=== PATIENT | female | born 1985 | race Caucasian/White ===

== ENCOUNTER 2017-12-07 06:01 | Inpatient (IN) | payer MEDICAID, OTHER ==
[2017-12-07] VITALS (10 sets, daily range): BP systolic 113–146; BP diastolic 59–81; PULSE 71–93; RESP 16–18; TEMP 97.3–98.1; O2SAT 97
[~2017-12-07] VITALS: Ht 165.1 cm; Wt 74.0 kg
[~2017-12-07 06:01] MED LIST: CEPH-460 PO; PREN1PAK9; TUMS500C CHEW
[2017-12-07] MEDS ORDERED: LACTATED RINGER'S 1000 ML INJ 1,000 ML IV SCH (06:40)
[2017-12-07] MEDS ORDERED: LACTATED RINGER'S 1000 ML INJ 1,000 ML IV PRN (06:40)
[2017-12-07] MEDS ORDERED: SODIUM CHLORID 0.9% 500 ML INJ 500 ML IV PRN (06:45)
[2017-12-07] MEDS ORDERED: MINERAL OIL 10 ML VIAL TOPICAL PRN (06:45)
[2017-12-07] MEDS ORDERED: OXYTOCIN 30 UNITS-500ML PREMIX 500 ML IV ONE (06:45)
[2017-12-07] MEDS ORDERED: CITRIC ACID-SODIUM CITRATE LIQ 30 ML UDC PO SCH (06:45)
[2017-12-07] MEDS ORDERED: LIDOCAINE HCL 1% 50 ML VIAL INFIL PRN (06:45)
[2017-12-07] MEDS ORDERED: LIDOCAINE HCL 1% 50 ML VIAL I-DERMAL PRN (06:45)
--- NOTE | 2017-12-07 06:47 | HHI.HP ---
HPI Chief Complaint Contractions Date Seen: Dec 07, 2017 Time Seen: 06:40 Travel History International Travel<30 Days: No Contact w/Intl Traveler<30Days: No Known Affected Area: No History of Present Illness HPI Patient is 32-year-old white female at 38 weeks [facility] and presents in labor. Cervix is 7 cm on admission. heart tones are reactive and contractions noted Weeks Gestation: 38 Para: 1 : 2 History Obstetric History Obstetric History One vaginal delivery Social History Alcohol Use: No Tobacco Use: No Substance Abuse: No Allergies-Medications (Allergen,Severity, Reaction): Coded Allergies: No Known Allergies (Unverified Adverse Reaction, Unknown, 11/18/17) Home Meds Active Scripts Cephalexin (Keflex) 500 Mg Cap, 500 MG PO BID for Infection, #14 CAP 0 Refills Prov:Misti Sanchez 11/12/17 Reported Medications Calcium Carbonate (Antacid) (Tums) 500 Mg Chew, 500 MG CHEW Y for HEARTBURN, TAB 0 Refills 10/28/17 Mv & Min W/Fe Prot Alvarez ( + Complete Multi 18-0.8 & 290 mg) 18 Mg Iron-800 Mcg-290 Mg-225 Mg Latrell 10/11/17 Review of Systems General / Constitutional: No: Fever, Weight Gain, Chills, Other Eyes: No: Diploplia, Blurred Vision, Visual changes, Pain, Photophobia HENT: No: Headaches, Vertigo, Lightheadedness Cardiovascular: No: Irregular Rhythm, Chest Pain or Discomfort, Palpitations, Tachycardia, Syncope, Varicosities, Edema, Cyanosis Respiratory: No: Cough, Short of Breath, Other Gastrointestinal: Abdominal Pain, No: Nausea, Vomiting, Diarrhea Genitourinary: No: Decreased Urinary Output, Oliguria Musculoskeletal: No: Limited ROM, Weakness, Cramping, Edema, Pain Skin: No Rash, No Itching, No Dryness, No Lumps, No Change in Pigmentation, No Change in Nails, No Alopecia, No Lesions Neurologic: No: Weakness, Dizziness, Syncope, Focal Abnormalities, Coordination Problem, Headache, Slurred Speech, Seizures Psychiatric: No: Depression, Suicidal Ideations, Homicidal Ideation Endocrine: No: Heat Intolerance, Cold Intolerance, Polydipsia, Polyuria, Other Physical Exam Narrative GENERAL: Well-nourished, well-developed patient. SKIN: Warm and dry. HEAD: Normocephalic and atraumatic. EYES: No scleral icterus. No injection or drainage. ENT: No nasal drainage noted. Mucous membranes pink. Airway patent. NECK: Supple, trachea midline. No JVD. CARDIOVASCULAR: Regular rate and rhythm without murmurs, gallops, or rubs. RESPIRATORY: Breath sounds equal bilaterally. No accessory muscle use. BREASTS: Bilateral exam showed no masses , no retractions, no nipple discharge. ABDOMEN/GI: Abdomen soft, non-tender, bowel sounds present, no rebound, no guarding Gravid to [38-] weeks size Fundal Height: [-38] GENITOURINARY: External Genitalia: intact and normal in appearance BUS glands: [-] Cervix: [-] Dilatation: [7-] Effacement: [-100] Station: [-2] Presentation: [vtx-] Membranes: [intact ] Uterine Contractions: [reg-] FHT's: Category: [1-] Baseline: [-133] Reactive: [-R] Variability: [mod-] Decels: [-none] EXTREMITIES: No cyanosis or edema. BACK: Nontender without obvious deformity. No CVA tenderness. NEUROLOGICAL: Awake and alert. Motor and sensory grossly within normal limits. Five out of 5 muscle strength in all muscle groups. Normal speech. Caprini VTE Risk Assessment Caprini VTE Risk Assessment: No/Low Risk (score <= 1) Caprini Risk Assessment Model Point Value = 1 Point Value = 2 Point Value = 3 Point Value = 5 Age 41-60 Minor surgery BMI > 25 kg/m2 Swollen legs Varicose veins or History of unexplained or recurrent spontaneous Oral contraceptives or hormone replacement Sepsis (< 1 month) Serious lung disease, including pneumonia (< 1 month) Abnormal pulmonary function Acute myocardial infarction Congestive heart failure (< 1 month) History of inflammatory bowel disease Medical patient at bed rest Age 61-74 Arthroscopic surgery Major open surgery (> 45 min) Laparoscopic surgery (> 45 min) Malignancy Confined to bed (> 72 hours) Immobilizing plaster cast Central venous access Age >= 75 History of VTE Family history of VTE Factor V Leiden Prothrombin [id number] Lupus anticoagulant Anticardiolipin antibodies Elevated serum homocysteine Heparin-induced thrombocytopenia Other congenital or acquired thrombophilia Stroke (< 1 month) Elective arthroplasty Hip, pelvis, or leg fracture Acute spinal cord injury (< 1 month) Prophylaxis Regimen Total Risk Factor Score Risk Level Prophylaxis Regimen 0-1 Low Early ambulation 2 Moderate Order ONE of the following: *Sequential Compression Device (SCD) *Heparin 5000 units SQ BID 3-4 Higher Order ONE of the following medications: *Heparin 5000 units SQ TID *Enoxaparin/Lovenox 40 mg SQ daily (WT < 150 kg, CrCl > 30 mL/min) *Enoxaparin/Lovenox 30 mg SQ daily (WT < 150 kg, CrCl > 10-29 mL/min) *Enoxaparin/Lovenox 30 mg SQ BID (WT < 150 kg, CrCl > 30 mL/min) AND/OR *Sequential Compression Device (SCD) 5 or more Highest Order ONE of the following medications: *Heparin 5000 units SQ TID (Preferred with Epidurals) *Enoxaparin/Lovenox 40 mg SQ daily (WT < 150 kg, CrCl > 30 mL/min) *Enoxaparin/Lovenox 30 mg SQ daily (WT < 150 kg, CrCl > 10-29 mL/min) *Enoxaparin/Lovenox 30 mg SQ BID (WT < 150 kg, CrCl > 30 mL/min) AND *Sequential Compression Device (SCD) Data Data Orders Orders Admit To Inpatient (12/07/17 ) Vital Signs (Adult) .Per protocol (12/07/17 06:40) Heart (12/07/17 06:40) Amnioinfusion (12/07/17 06:40) Urinary Catheter Management .ONCE (12/07/17 06:40) Diet Npo (12/07/17 Breakfast) Lactated Ringer's 1000 Ml Inj (Lr 1000 M (12/07/17 06:40) Lactated Ringer's 1000 Ml Inj (Lr 1000 M (12/07/17 06:40) Sodium Chlorid 0.9% 500 Ml Inj (Ns 500 M (12/07/17 06:45) Sodium Chlor 0.9% 1000 Ml Inj (Ns 1000 M (12/07/17 07:00) Lidocaine 1% Inj (50 Ml) (Xylocaine 1% I (12/07/17 06:45) Citric Acid-Sodium Citrate Liq (Bicitra (12/07/17 06:45) Fentanyl Inj (Fentanyl Inj) (12/07/17 06:45) Fentanyl Inj (Fentanyl Inj) (12/07/17 06:45) Complete Blood Count With Diff (12/07/17 06:40) Hold Clot (12/07/17 06:40) Abo/Rh Blood Type (12/07/17 06:40) Urinalysis - C+S If Indicated (12/07/17 06:40) Drug Screen, Random Urine (12/07/17 06:40) Resp Oxygen Non Rebreathe Mask (12/07/17 ) ^ Epidural / Intrathecal Infus (12/07/17 06:40) Oxytocin 30 Units-500ml Premix (Pitocin (12/07/17 06:45) Lidocaine 1% Inj (50 Ml) (Xylocaine 1% I (12/07/17 06:45) Light Mineral Oil (Muri-Lube Oil) (12/07/17 06:45) Group B Strep: Negative Assessment/Plan Assessment and Plan Patient is 32-year-old white female at 38 weeks presents in active labor, cervix 7 cm on admission, heart tones are reactive contractions noted. Impression-active labor at term Plan- admission to labor and delivery management labor and anticipate vaginal delivery Neo Robledo II, MD Dec 07, 2017 06:47
[2017-12-07] MEDS ORDERED: SODIUM CHLOR 0.9% 1000 ML INJ 1,000 ML IV PRN (07:00)
[2017-12-07 07:38] LABS: AUTOMATED NEUTROPHIL # 11.9 TH/MM3 (1.8-7.7); BASOPHIL # 0.1 TH/MM3 (0-0.2); BASOPHIL % 0.3 % (0.0-2.0); EOSINOPHIL # 0.1 TH/MM3 (0-0.4); EOSINOPHIL % 0.9 % (0.0-4.0); HEMATOCRIT 40.2 % (35.0-46.0); HEMOGLOBIN 13.1 GM/DL (11.6-15.3); LYMPH % 17.8 % (9.0-44.0); LYMPHOCYTE # 2.8 TH/MM3 (1.0-4.8); MEAN CELL VOLUME 81.4 FL (80.0-100.0); MEAN CORPUSCULAR HEMOGLOBIN 26.6 PG (27.0-34.0); MEAN CORPUSCULAR HGB CONC 32.6 % (32.0-36.0); MEAN PLATELET VOLUME 9.2 FL (7.0-11.0); MONO % 5.1 % (0.0-8.0); MONOCYTE # 0.8 TH/MM3 (0-0.9); NEUT % 75.9 % (16.0-70.0); PLATELET COUNT 330 TH/MM3 (150-450); RED BLOOD COUNT 4.94 MIL/MM3 (4.00-5.30); RED CELL DISTRIBUTION WIDTH 14.7 % (11.6-17.2); WHITE BLOOD COUNT 15.7 TH/MM3 (4.0-11.0)
[2017-12-07] MEDS ORDERED: LIDOCAINE HCL 1% 20 ML VIAL ONE (08:51)
--- NOTE | 2017-12-07 09:14 | PD.OB.DELI ---
Weeks gestation: 38 Pt started active labor?: Yes Medical induction of labor?: No Artificial rupture of membrane: Yes Artificial ROM date: Dec 07, 2017 Artifical ROM time: 08:34 Anesthesia: None Episiotomy: None Vaginal Delivery: Normal Presentation: Occiput anterior Nuchal Cord: x1 Delayed cord clamping (45 sec): Yes Infant: Male, Single Delivery date: Dec 07, 2017 Delivery time: 08:50 One Minute : 8 Five Minute : 9 Weight: [id number] Placenta: Spontaneous delivery Laceration: No lacerations Estimated blood loss: 100 Jennifer Ly MD R1 Dec 07, 2017 09:14
[2017-12-07] MEDS ORDERED: BENZOCAINE 20% TOPICAL SPRAY 60 ML CAN TOPICAL PRN (09:30)
[2017-12-07] MEDS ORDERED: SODIUM CHLORIDE 0.9% FLUSH 10 ML FLUSH IV FLUSH PRN (09:30)
[2017-12-07] MEDS ORDERED: IBUPROFEN 800 MG TAB PO PRN (09:30)
[2017-12-07] MEDS ORDERED: ACETAMINOPHEN 325 MG TAB PO PRN (09:30)
[2017-12-07] MEDS ORDERED: ALUMINUM/MAGNESIUM/SIMETH 30 ML CUP PO PRN (09:30)
[2017-12-07] MEDS ORDERED: OXYTOCIN 30 UNITS-500ML PREMIX 500 ML IV SCH (09:30)
[2017-12-07] MEDS ORDERED: ZOLPIDEM TARTRATE 5 MG TAB PO PRN (09:30)
[2017-12-07] MEDS ORDERED: ONDANSETRON ODT 4 MG TAB PO PRN (09:30)
[2017-12-07] MEDS ORDERED: DOCUSATE SODIUM 50 MG/SENNA 8.6 MG TAB PO PRN (09:30)
[2017-12-07] MEDS ORDERED: oxyCODONE/ACETAMINOPHEN 5 MG/325 MG TAB PO PRN ×2 (09:30)
[2017-12-07] MEDS ORDERED: WITCH HAZEL 50%/GLYCERIN 12.5% 40 PAD JAR TOPICAL PRN (09:30)
[2017-12-07] MEDS ORDERED: MEASLES, MUMPS, RUBELLA VACCINE 0.5 ML VIAL SQ ONE (16:00)
[2017-12-07] MEDS ORDERED: DIPHTH/TETANUS/ACEL PERTUSSIS (BOOSTER) 0.5 ML VIAL/PFS IM ONE (16:00)
[2017-12-07] MEDS: SODIUM CHLORIDE 0.9% FLUSH 10 ML FLUSH IV FLUSH SCH (21:00)
[2017-12-08] MEDS ORDERED: IBUP1TAB7 PO (08:28)
[2017-12-08] MEDS ORDERED: PERI PO (08:28)
[2017-12-08 08:30] VITALS: BP 125/72; PULSE 80; RESP 16; TEMP 98.2
--- NOTE | 2017-12-08 09:40 | HHI.DCPOC ---
Discharge Care Plan Diagnosis: (1) care following vaginal delivery Report Symptoms to Your Doctor -Temperature above 100.5 degrees -Redness, of incision or excessive or foul smelling drainage -Unusual pain or calf pain -Increased vaginal bleeding -Painful or difficulty urinating -Feelings of extreme sadness or anxiety after 2 weeks Goals to Promote Your Health * To prevent worsening of your condition and complications * To maintain your health at the optimal level Directions to Meet Your Goals Take your medications as prescribed Follow your dietary instruction Follow activity as directed Ensure plenty of rest for recovery Drink fluids for hydration Keep your appointments as scheduled Take your immunizations and boosters as scheduled If your symptoms worsen call your PCP, if no PCP go to Urgent Care Center or Emergency Room Smoking is Dangerous to Your Health. Avoid second hand smoke Call the 24-hour crisis hotline for domestic abuse at Seferino Abel MD Dec 08, 2017 09:40
--- NOTE | 2017-12-08 10:19 | HHI.OB ---
Subjective Post Day: 1 Remarks day #1. AFVSS overnight. Pain minimal. Decreased lochia. Denies dysuria. No breast tenderness. She is feeding the baby via breast. Appetite good. No nausea or vomiting. Endorses flatus. Endorses bowel movement. Ambulating well. Denies calf pain, shortness of breath, or cough. Otherwise, she is doing well this morning and has no other complaints. Objective Vitals/I&O Vital Signs Date Time Temp Pulse Resp B/P (MAP) Pulse Ox O2 Delivery O2 Flow Rate FiO2 12/08/17 08:30 98.2 80 16 125/72 (89) 12/07/17 20:00 71 16 113/59 (77) 97 12/07/17 20:00 97.3 12/07/17 10:57 98.1 79 18 122/75 (91) Objective Remarks GENERAL: Well-nourished, well-developed patient. CARDIOVASCULAR: Regular rate and rhythm without murmurs, gallops, or rubs. RESPIRATORY: Breath sounds equal bilaterally. No accessory muscle use. ABDOMEN/GI: Abdomen soft, non-tender. Fundus: Firm, non-tender at umbilicus. GENITOURINARY: Light to moderate bleeding. EXTREMITIES: No cyanosis or edema, non-tender, without signs of DVT. Medications and IVs Current Medications Medications (Trade) Dose Ordered Sig/Luis Route Start Time Stop Time Status Last Admin (Xylocaine 1% Inj (50 ml)) 0.1 ml UNSCH X1 PRN I-DERMAL 12/07/17 06:45 12/10/17 06:44 (Bicitra Liq) 30 ml [employer] PO 12/07/17 06:45 12/11/17 06:44 (Xylocaine 1% Inj (50 ml)) 10 ml UNSCH X1 PRN INFIL 12/07/17 06:45 12/09/17 06:44 (Muri-Lube Oil) 10 ml UNSCH PRN TOPICAL 12/07/17 06:45 (NS Flush) 2 ml BID IV FLUSH 12/07/17 21:00 (NS Flush) 2 ml UNSCH PRN IV FLUSH 12/07/17 09:30 (Tylenol) 650 mg Q4H PRN PO 12/07/17 09:30 (Motrin) 800 mg Q8H PRN PO 12/07/17 09:30 (Percocet 5-325 Mg) 1 tab Q4H PRN PO 12/07/17 09:30 (Percocet 5-325 Mg) 2 tab Q4H PRN PO 12/07/17 09:30 (Americaine 20% Top Spr) 1 spray Q4H PRN TOPICAL 12/07/17 09:30 (Tucks Pads) 1 applic QID PRN TOPICAL 12/07/17 09:30 (Cathi-Colace) 2 tab Q12H PRN PO 12/07/17 09:30 (Ambien) 5 mg HS PRN PO 12/07/17 09:30 (Mag-Al Plus Susp Liq) 15 ml Q8H PRN PO 12/07/17 09:30 (Zofran Odt) 4 mg Q6H PRN PO 12/07/17 09:30 Assessment/Plan Assessment and Plan 32y/o who is PPD#1 s/p . -Continue routine care. -Percocet and Motrin PRN pain. -Encouraged OOB. Advised pelvic rest for 6 wks. -Will need a f/u appt. within 6 wks. -Re: ctrl, she would like tubal ligation -D/c today Seferino Abel MD Dec 08, 2017 10:19
[2017-12-08] MEDS: SODIUM CHLORIDE 0.9% FLUSH 10 ML FLUSH IV FLUSH SCH (10:33)
== END 2017-12-08 17:50 | disposition home or self-care (01) | DRG 775 ==
LOC: HOBED 06:01 → H2EA 06:41 → H1EA 10:45
PROVIDERS: ADMIT Obstetrics & Gynecology Maternal & Fetal Medicine; ATTEND Obstetrics & Gynecology Maternal & Fetal Medicine
PROC: 10E0XZZ Delivery of Products of Conception, External Approach (ICD-10-PCS; principal; 2017-12-07)
PROC: 10907ZC Drainage of Amniotic Fluid, Therapeutic from Products of Conception, Via Natural or Artificial Opening (ICD-10-PCS; 2017-12-07)
DX: O69.81X0 Labor and delivery complicated by cord around neck, without compression, not applicable or unspecified (principal); Z37.0 Single live birth; Z3A.38 38 weeks gestation of pregnancy
CPT/HCPCS: 59025; 85025; 86900; 86901